=== PATIENT | male | born 1955 | race Caucasian/White ===

== ENCOUNTER → 2016-10-23 | Outpatient (CLI) | payer BC ==
[~2016-10-23] MED LIST: ACT30 PO; ASPEC325 PO; ATEN50TA8 PO; BNC20 PO; SIMV20TA2 PO
[2016-10-23 12:04] LABS: BASO % 0.7 %; BASO ABS # 0.04 K/uL (0-0.2); COMPLETE YES; HEMATOCRIT 45.7 % (42-52); IG% 0.2 %; LYMPH % 36.5 %; LYMPH ABS # 2.16 K/uL (1.2-3.4); MEAN CORPUSCULAR HEMOGLOBIN 29.1 pg (25-34); MEAN CORPUSCULAR HGB CONC 33.5 g/dl (32-36); MEAN PLATELET VOLUME 9.5 fL (7.4-10.4); MONO % 8.3 %; NEUT % 51.3 %; PLATELET COUNT 181 K/uL (130-400); RED BLOOD COUNT 5.25 M/uL (4.7-6.1); WHITE BLOOD COUNT 5.92 K/uL (4.8-10.8)
[2016-10-23 12:12] LABS: ESTIMATED AVERAGE GLUCOSE 194 mg/dl; HA1C FLAG Normal (Normal)
[2016-10-23 12:39] LABS: ALT/SGPT 29 U/L (12-78); AST/SGOT 16 U/L (15-37); BLOOD UREA NITROGEN 13 mg/dl (7-18); BUN/CREATININE RATIO 14.9 (10-20); CALCIUM 9.4 mg/dl (8.5-10.1); CARBON DIOXIDE 28 mmol/L (21-32); CHLORIDE 102 mmol/L (98-107); GLUCOSE 156 mg/dl (70-99); POTASSIUM 4.1 mmol/L (3.5-5.1); SODIUM 138 mmol/L (136-145)
[2016-10-23 15:17] LABS: URINE PROTIEN/CREAT RATIO 0.1 (0-0.2)
[2016-10-23 15:18] LABS: URINE TOTAL PROTEIN 5.6 mg/dl (0-11.9)
== END | disposition home or self-care (01) ==
LOC: C.LAB 10:58
DX: E11.9 Type 2 diabetes mellitus without complications (principal); I10 Essential (primary) hypertension; E78.5 Hyperlipidemia, unspecified

== ENCOUNTER → 2016-10-30 | Outpatient (CLI) | payer BC ==
--- NOTE | 2016-10-30 17:03 | DIAGNOSTIC IMAGING REPORT ---
Venous Doppler right leg RIGHT VENOUS DOPP LOWER EXT UNILAT CLINICAL HISTORY: RT LEG PAIN,R/O DVT Right pain. Edema. TECHNIQUE: Ultrasound COMPARISON STUDY: None FINDINGS: Small focus of thrombus within the distal popliteal vein. This is nonocclusive. All remaining venous structures are unremarkable. IMPRESSION: Small focus of thrombus within the distal popliteal vein. In the absence of a prior study, this appearance is consistent with focal acute deep venous thrombosis Electronically signed by: Curtis Rucker M.D. 10/30/2016 5:02 PM Dictated Date/Time: 10/30/2016 5:00 PM
== END | disposition home or self-care (01) ==
LOC: C.ULTR 16:21
DX: I82.431 Acute embolism and thrombosis of right popliteal vein (principal)